=== PATIENT | female | born 1965 | race African-American/Black ===

== ENCOUNTER 2017-07-23 21:13 | Inpatient (IN) | payer MEDICARE, MEDICAID ==
[~2017-07-23] VITALS: Ht 162.6 cm; Wt 60.0 kg
[2017-07-23 21:20] VITALS: Ht 162.6 cm; Wt 60.0 kg
[2017-07-23 21:37] LABS: BASOPHIL # 0.1 10^3/ul (0.0-0.1); BASOPHILS % 0.8 % (0.0-2.0); EOSINOPHILS # 0.4 10^3/ul (0.0-0.5); EOSINOPHILS % 6.9 % (0.0-7.0); HEMATOCRIT 34.1 % (37.0-47.0); LYMPHOCYTES % 47.2 % (15.0-51.0); MEAN CORPUSCULAR HEMOGLOBIN 31.4 pg (29.0-33.0); MEAN CORPUSCULAR HGB CONC 32.3 g/dl (32.0-37.0); MEAN CORPUSCULAR VOLUME 97.4 fl (82.0-101.0); MEAN PLATELET VOLUME 10.4 fl (7.4-10.4); MONOCYTE # 0.5 10^3/ul (0.3-0.9); MONOCYTES % 8.5 % (0.0-11.0); NEUTROPHIL # 2.3 10^3/ul (1.6-7.5); NEUTROPHILS % 36.4 % (39.0-77.0); PLATELET COUNT 331 10^3/UL (140-415); RED CELL DISTRIBUTION WIDTH 13.2 % (11.5-14.5); WHITE BLOOD COUNT 6.3 10^3/ul (4.8-10.8)
--- NOTE | 2017-07-23 21:39 | RADRPT ---
PROCEDURE: XR Chest. CLINICAL INDICATION: Shortness of breath. TECHNIQUE: Single frontal view. COMPARISON: None. FINDINGS: The right hand overlies the right side of the chest as the patient was unable to cooperate. The lung s are clear. The heart size is normal. There is calcification in the aorta consistent with atherosclerosis. There is no pleural effusion. There is no pneumothorax. IMPRESSION: 1. Atherosclerosis. 2. Clear lungs. RPTAT: QQ .Lasha Arriaza MD, MD Date Time Electronically viewed and signed by .Lasha Arriaza MD, MD on 07/23/2017 21:38 .R/
--- NOTE | 2017-07-23 21:49 | RADRPT ---
PROCEDURE: CT Brain without contrast. CLINICAL INDICATION: Code stroke TECHNIQUE: A CT of the brain was performed utilizing axial imaging from the skull base through the vertex without intravenous contrast. Multiplanar reformatted images were made.The CTDIvol is 43.13 mGy and the DLP is 824.04 mGycm. One or more the following dose reduction techniques were utilized: Automated exposure control, adjus tment of the mA and / or kV according to patient's size, or use of iterative reconstruction techniqu e. COMPARISON: None. FINDINGS: There is no intracranial hemorrhage, mass effect, or midline shift. Mild to moderate atrophy is i dentified with compensatory ventricular and sulcal enlargement. Moderate to marked decreased attenu ation is seen in the periventricular and deep white matter, which could be secondary to microvascula r ischemic disease advanced for the patient's age. The bowling white matter differentiation is preserv ed with no acute infarct detected. The osseous structures and visualized paranasal sinuses are unre markable. IMPRESSION: No acute bleed. No acute major tear territory infarct seen. Critical result discussed with Dr. Saad montano at 09:48 p.m. on 07/23/2017. RPTAT: HJES .Ismael Bergeron MD, MD Date Time Electronically viewed and signed by .Ismael Bergeron MD, on 07/23/2017 21:48 .S/
[2017-07-23 21:55] LABS: INR 1.03; PROTIME 13.5 Sec (12.2-14.2); PT RATIO 1.1
[2017-07-23] MEDS ORDERED: ASPIRIN 300 MG SUPP PR ONE (22:00)
[2017-07-23 22:12] LABS: ANION GAP 10 (8-16); BLOOD UREA NITROGEN 12 mg/dl (7-20); CALCIUM 8.7 mg/dl (8.4-10.2); CARBON DIOXIDE 30 mmol/L (21-31); CHLORIDE 103 mmol/L (97-110); CREATININE 0.82 mg/dl (0.44-1.00); GLUCOSE 88 mg/dl (70-220); POTASSIUM 4.2 mmol/L (3.5-5.1); SODIUM 139 mmol/L (135-144)
[2017-07-23 22:18] LABS: TROPONIN-I < 0.012 ng/ml (0.00-0.12)
[2017-07-23 22:23] LABS: ADD UMIC YES; UR ASCORBIC ACID NEGATIVE (NEGATIVE); UR BACTERIA FEW /HPF (NONE SEEN); UR BILIRUBIN (Dip) NEGATIVE (NEGATIVE); UR BLOOD (Dip) NEGATIVE (NEGATIVE); UR BUDDING YEAST FEW /HPF (NONE SEEN); UR CLARITY SLIGHTLY CLOUDY (CLEAR); UR COLOR YELLOW (YELLOW); UR GLUCOSE (Dip) NEGATIVE (NEGATIVE); UR KETONES (Dip) NEGATIVE (NEGATIVE); UR LEUKOCYTE ESTERASE (Dip) 2+ Leu/ul (NEGATIVE); UR NITRITE (Dip) NEGATIVE (NEGATIVE); UR RBC 5 /HPF (0-5); UR SPECIFIC GRAVITY (Dip) 1.015 (1.003-1.030); UR TOTAL PROTEIN (Dip) NEGATIVE (NEGATIVE); UR UROBILINOGEN (Dip) NEGATIVE (NEGATIVE)
[2017-07-23 22:37] LABS: OPIATES Negative (NEGATIVE)
[2017-07-23 22:38] LABS: BARBITURATES Negative (NEGATIVE); CANNABINOIDS Negative (NEGATIVE); COCAINE Negative (NEGATIVE)
[2017-07-23] MEDS ORDERED: CEFTRIAXONE 1 GM/50 ML (PMX) 50 ML IVPB ONE (23:00)
[2017-07-23 23:11] LABS: BENZODIAZEPINES Negative (NEGATIVE)
--- NOTE | 2017-07-23 23:25 | ERA ---
ER Documentation Chief Complaint Date/Time DATE: 07/23/17 TIME: 23:21 Chief Complaint more altered than normal x few hours, EMS EKG shows STEMI; not in ER HPI Patient is a male with dementia and multiple sclerosis as well as hypertension who presents altered. Please note the history and physical exam is limited secondary to the patient's altered mental status. The patient came in as a possible STEMI from the field. She arrived at 2111. She has altered mental status. She is usually verbal but 1 hour ago became nonverbal supposedly. Her primary doctor is Dr. Rodriguez. ROS All systems reviewed and are negative except as per history of present illness. Allergies Allergies: Coded Allergies: Sulfa (Sulfonamide Antibiotics) (Verified Allergy, Unknown, 07/23/17) PMhx/Soc History of Surgery: Yes (RIGHT AKA) Hx Alcohol Use: No Hx Substance Use: No Hx Tobacco Use: No Smoking Status: Unknown if ever smoked FmHx Unable to obtain Physical Exam Vitals Vital Signs Date Time Temp Pulse Resp B/P Pulse Ox O2 Delivery O2 Flow Rate FiO2 07/23/17 22:15 99 2.0 28 07/23/17 21:45 57 15 93/63 100 Room Air 07/23/17 21:33 Nasal Cannula 2 07/23/17 21:20 98.2 66 18 106/66 100 Physical Exam Const: [] Head: Atraumatic Eyes: Normal Conjunctiva ENT: Normal External Ears, Nose and Mouth. Neck: Full range of motion..~ No meningismus. Resp: Clear to auscultation bilaterally Cardio: Regular rate and rhythm, no murmurs Abd: Soft, non tender, non distended. Normal bowel sounds Skin: No petechiae or rashes Back: No midline or flank tenderness Ext: No cyanosis, or edema Neur: Awake and alert Psych: Normal Mood and Affect Result Diagram: 07/23/17212307/23/172123 Results 24 hrs Laboratory Tests Test 07/23/17 21:00 07/23/17 21:24 07/23/17 22:00 Hemoglobin A1c 4.8% White Blood Count 6.310^3/ul Red Blood Count 3.5010^6/ul Hemoglobin 11.0g/dl Hematocrit 34.1% Mean Corpuscular Volume 97.4fl Mean Corpuscular Hemoglobin 31.4pg Mean Corpuscular Hemoglobin Concent 32.3g/dl Red Cell Distribution Width 13.2% Platelet Count 95078^3/UL Mean Platelet Volume 10.4fl Neutrophils % 36.4% Lymphocytes % 47.2% Monocytes % 8.5% Eosinophils % 6.9% Basophils % 0.8% Nucleated Red Blood Cells % 0.0/100WBC Neutrophils # 2.310^3/ul Lymphocytes # 3.010^3/ul Monocytes # 0.510^3/ul Eosinophils # 0.410^3/ul Basophils # 0.110^3/ul Nucleated Red Blood Cells # 0.010^3/ul Prothrombin Time 13.5Sec Prothrombin Time Ratio 1.1 INR International Normalized Ratio 1.03 Activated Partial Thromboplast Time 30.0Sec Sodium Level 139mmol/L Potassium Level 4.2mmol/L Chloride Level 103mmol/L Carbon Dioxide Level 30mmol/L Anion Gap 10 Blood Urea Nitrogen 12mg/dl Creatinine 0.82mg/dl Glucose Level 88mg/dl Calcium Level 8.7mg/dl Troponin I < 0.012ng/ml Urine Color YELLOW Urine Clarity SLIGHTLY CLOUDY Urine pH 7.0 Urine Specific [place] 1.015 Urine Ketones NEGATIVEmg/dL Urine Nitrite NEGATIVEmg/dL Urine Bilirubin NEGATIVEmg/dL Urine Urobilinogen NEGATIVEmg/dL Urine Leukocyte Esterase 2+Silvio/ul Urine Microscopic RBC 5/HPF Urine Microscopic WBC 36/HPF Urine Bacteria FEW/HPF Urine Yeast (Budding) FEW/HPF Urine Hemoglobin NEGATIVEmg/dL Urine Glucose NEGATIVEmg/dL Urine Total Protein NEGATIVEmg/dl Urine Opiates Screen Negative Urine Barbiturates Negative Urine Amphetamines Screen Negative Urine Benzodiazepines Screen Negative Urine Cocaine Screen Negative Urine Cannabinoids Negative Current Medications Medications (Trade) Dose Ordered Sig/Dashawn Route PRN Reason Start Time Stop Time Status Last Admin Dose Admin Aspirin 300 mg 300 mg ONCE ONCE RI 07/23/17 22:00 07/23/17 22:01 DC 07/23/17 22:12 Ceftriaxone Sodium (Rocephin) 50 ml @ 100 mls/hr ONCE ONCE IVPB 07/23/17 23:00 07/23/17 23:29 Procedures/MDM EKG #1 read by me: Rate/Rhythm: Regular rate and rhythm at a normal rate Intervals: Normal Impression: No evidence of ischemia or arrhythmia EKG #2 read by me: Rate/Rhythm: Regular rate and rhythm at a normal rate Intervals: Normal Impression: No evidence of ischemia or arrhythmia CT brain shows no intracranial hemorrhage or mass per radiology. Chest x-ray shows no pneumonia per radiology. Patient is a 51-year-old female with dementia and hypertension who presents altered. She was found to have acute cystitis which may be the cause of her altered mental status. The patient had a CT scan of the brain which did not show any obvious intrarenal hemorrhage or mass. The patient also had a chest x- ray which shows no obvious pneumonia. At this point I doubt STEMI as the 2 EKGs did not show STEMI. The patient will be admitted to the panel team to a telemetry bed. The patient was given aspirin for potential stroke although I believe the most likely cause of the altered mental status is related to the acute cystitis. The patient has chronic illness. At this point I doubt sepsis as there is not 2 SIRS criteria. Departure Diagnosis: Primary Impression: Altered level of consciousness Additional Impressions: Anemia Qualified Code: D64.9 - Anemia, unspecified type Cystitis Condition: HARSHA Mckeon MD Jul 23, 2017 23:25
[2017-07-23] MEDS ORDERED: SODIUM CHLORIDE 0.9% 1L BAG IV* STA (23:29)
[2017-07-23] MEDS ORDERED: ONDANSETRON 4 MG INJ IV PRN (23:30)
[2017-07-23] MEDS ORDERED: ACETAMINOPHEN 325 MG TAB PO PRN (23:30)
[2017-07-24] MEDS ORDERED: ACET325T45 PO (02:56)
[2017-07-24] MEDS ORDERED: ERGO500037 PO (02:56)
[2017-07-24] MEDS ORDERED: HYDR4TAB PO (02:56)
[2017-07-24] MEDS ORDERED: CRAN450C PO (02:56)
[2017-07-24] MEDS ORDERED: DOCU-159 PO (02:56)
[2017-07-24] MEDS ORDERED: AMLO-147 PO (02:56)
[2017-07-24] MEDS ORDERED: M-171CAP PO (02:56)
[2017-07-24] MEDS ORDERED: VENL75TA2 PO (02:56)
[2017-07-24] MEDS ORDERED: PANT40TA4 PO (02:56)
[2017-07-24] MEDS ORDERED: BISA10SU55 RC (02:56)
[2017-07-24] MEDS ORDERED: METO25TA4 PO (02:56)
[2017-07-24] MEDS ORDERED: SLOMAG PO (02:56)
[2017-07-24] MEDS ORDERED: LEVE500S8 PO (02:56)
[2017-07-24] MEDS ORDERED: GABA100C14 PO (02:56)
[2017-07-24] MEDS ORDERED: DONE10TA7 PO (02:56)
[2017-07-24] MEDS ORDERED: MEMA5TAB PO (02:56)
[2017-07-24] MEDS ORDERED: MELA3TAB29 PO (02:56)
[2017-07-24] MEDS ORDERED: CLON-379 PO (02:56)
[2017-07-24] MEDS ORDERED: BACL20TA PO (02:56)
[2017-07-24] MEDS ORDERED: OXCA150T43 PO (02:59)
[2017-07-24] MEDS ORDERED: DEXTROSE 5%-0.45% NACL 1,000 ML IV SCH (04:27)
[2017-07-24] MEDS ORDERED: ALBUTEROL/IPRATROPIUM (NEB) 3 ML AMP HHN PRN (04:30)
[2017-07-24] MEDS ORDERED: ACETAMINOPHEN 325 MG TAB PO PRN ×2 (04:30)
[2017-07-24] MEDS ORDERED: NACL 0.9% 3 ML SYG IV SCH (04:30)
[2017-07-24] MEDS ORDERED: morphine 2 MG INJ IV PRN (04:30)
[2017-07-24] MEDS ORDERED: ONDANSETRON 4 MG INJ IV PRN (04:30)
[2017-07-24 05:55] LABS: BASOPHILS % 0.5 % (0.0-2.0); EOSINOPHILS # 0.5 10^3/ul (0.0-0.5); EOSINOPHILS % 8.2 % (0.0-7.0); HEMATOCRIT 38.3 % (37.0-47.0); HEMOGLOBIN 11.8 g/dl (12.0-16.0); LYMPHOCYTES # 2.6 10^3/ul (0.8-2.9); LYMPHOCYTES % 47.4 % (15.0-51.0); MEAN CORPUSCULAR HEMOGLOBIN 30.3 pg (29.0-33.0); MEAN CORPUSCULAR HGB CONC 30.8 g/dl (32.0-37.0); MEAN CORPUSCULAR VOLUME 98.2 fl (82.0-101.0); MEAN PLATELET VOLUME 10.5 fl (7.4-10.4); MONOCYTE # 0.5 10^3/ul (0.3-0.9); MONOCYTES % 9.5 % (0.0-11.0); NEUTROPHIL # 1.9 10^3/ul (1.6-7.5); NEUTROPHILS % 34.2 % (39.0-77.0); PLATELET COUNT 268 10^3/UL (140-415); RED CELL DISTRIBUTION WIDTH 13.2 % (11.5-14.5); WHITE BLOOD COUNT 5.5 10^3/ul (4.8-10.8)
--- NOTE | 2017-07-24 06:15 | HP ---
Date/Time of Note Date/Time of Note DATE: 07/24/17 TIME: 06:03 Assessment/Plan VTE Prophylaxis VTE Prophylaxis Intervention: heparin Assessment/Plan Assessment/Plan 51-year-old female with history of hypertension, MS, seizure, probable dementia and depression with acute encephalopathy. -Unknown etiology but this could be secondary to MS flare vs seizure vs infectious etiology from UTI vs CVA -Will admit to telemetry unit -Obtain MRI of the brain -Treat UTI -Neurology consult. Will order EEG -Check folate, B12 and TSH -Speech/swallow as well as PT evaluation HPI/ROS Admit Date/Time Admit Date/Time Hx of Present Illness This is a 55-year-old female with a history of hypertension, seizure, multiple sclerosis, probable dementia and depression who was sent from SNF for altered mentation. Field EKG actually showed STEMI and she was brought to the ER as code STEMI. 2 EKGs done in the ER however showed no ST-T wave abnormalities and as such STEMI was cancelled. Patient is currently confused and as such information is obtained from chart review and from the ER physician. Reportedly patient is usually verbal but about an hour prior to presenting to the ER she was noted to be altered and nonverbal. When she presented to the ER, initial vitals were stable but after couple of hours blood pressure was noted to be as low as 70/44. Labs shows a hemoglobin of 11 otherwise CBC and CMP within acceptable range. Urinalysis consistent with UTI. Brain CT was negative for acute findings. PMH/Family/Social Past Medical History Medical History: hypertension, other (Multiple sclerosis, seizure) Social History Alcohol Use: other (Unknown) Smoking Status: Unknown if ever smoked Drug Use: other (Unknown) Exam/Review of Systems Vital Signs Vitals Vital Signs Date Time Temp Pulse Resp B/P Pulse Ox O2 Delivery O2 Flow Rate FiO2 07/24/17 05:58 56 16 118/77 100 Nasal Cannula 2.0 07/23/17 22:15 28 07/23/17 21:20 98.2 Exam Constitutional: other (Sleepy but arousable. Confused) Psych: confusion Eyes: PERRL Respiratory: clear to auscultation Cardiovascular: nl pulses, regular rate and rhythm Gastrointestinal: soft Extremities: normal pulses Neurological: confused Labs Result Diagram: 07/24/17 0547 07/23/17 9194 Medications Medications Current Medications Dextrose/Sodium Chloride (D5-1/2ns) 1,000 ml @ 75 mls/hr [id number] IV ; Start at 04:27 Ondansetron HCl (Zofran Inj) 4 mg Q6H PRN IV NAUSEA AND/OR VOMITING; Start at 04:30 Aspirin (Aspirin) 81 mg DAILY PO ; Start 07/24/17 at 09:00 Acetaminophen (Tylenol Tab) 650 mg Q6H PRN PO PAIN LEVEL 1-3 OR FEVER; Start at 04:30 Morphine Sulfate (morphine) 2 mg Q4H PRN IV PAIN LEVEL 7-10; Start 07/24/17 at 04:30 Heparin Sodium (Porcine) (Heparin (5000 Units/0.5 ml)) 5,000 unit Q12 SC ; Start 07/24/17 at 09:00 Acetaminophen (Tylenol Tab) 325 mg Q4H PRN PO PAIN AND OR ELEVATED TEMP; Start 07/24/17 at 04:30 Baclofen (Lioresal) 20 mg QID PO ; Start 07/24/17 at 09:00; Status UNV Docusate Sodium (Colace) 100 mg BID PO ; Start 07/24/17 at 09:00; Status UNV Donepezil HCl (Aricept) 10 mg DAILY PO ; Start 07/24/17 at 09:00; Status UNV Gabapentin (Neurontin) 100 mg TID PO ; Start 07/24/17 at 09:00; Status UNV Hydromorphone HCl (Dilaudid) 4 mg Q6 PRN PO PAIN; Start 07/24/17 at 04:30; Status UNV Levetiracetam (Keppra Liquid) 500 mg BID PO ; Start 07/24/17 at 09:00; Status UNV Magnesium Chloride (Mag 64) 64 mg BID PO ; Start 07/24/17 at 09:00; Status UNV Memantine (Namenda) 5 mg BID PO ; Start 07/24/17 at 09:00; Status UNV Oxcarbazepine (Trileptal) 150 mg BID PO ; Start 07/24/17 at 09:00; Status UNV Venlafaxine HCl (Effexor Xr) 75 mg DAILY PO ; Start 07/24/17 at 09:00; Status UNV MAIKEL HOBBS MD Jul 24, 2017 06:13
[2017-07-24 06:20] LABS: ALBUMIN 3.3 g/dl (3.3-4.9); CALCIUM 8.9 mg/dl (8.4-10.2); CHOL/HDL RATIO 3.5 RATIO; CREATININE 0.69 mg/dl (0.44-1.00); MAGNESIUM 1.8 mg/dl (1.7-2.5); POTASSIUM 4.5 mmol/L (3.5-5.1); TOTAL PROTEIN 6.6 g/dl (6.1-8.1)
[2017-07-24 06:50] LABS: THYROID STIMULATING HORMONE 0.682 MIU/L (0.465-4.680)
[2017-07-24] MEDS: PANTOPRAZOLE (EC) 40 MG TAB PO SCH (07:52)
[2017-07-24 08:40] LABS: FOLATE 11.2 ng/ml (2.8-20.0)
[2017-07-24] MEDS ORDERED: GABAPENTIN 100 MG CAP PO SCH (09:00)
[2017-07-24] MEDS ORDERED: BACLOFEN 10 MG TAB PO SCH (09:00)
[2017-07-24] MEDS ORDERED: HYDROmorphONE 2 MG TAB PO PRN (09:30)
[2017-07-24] MEDS: MAGNESIUM CHLORIDE (SR) 64 MG TAB PO SCH ×2 (09:54→23:16)
[2017-07-24] MEDS: ASPIRIN 81 MG TAB PO SCH (09:54)
[2017-07-24] MEDS: MEMANTINE 5 MG TAB PO SCH ×2 (09:54→21:21)
[2017-07-24] MEDS: OXCARBAZEPINE 150 MG TAB PO SCH ×2 (09:55→23:16)
[2017-07-24] MEDS: LEVETIRACETAM (100 MG/ML) 5ML CUP PO SCH ×2 (09:55→21:21)
[2017-07-24] MEDS: VENLAFAXINE (XR) 75 MG CAP PO SCH (09:55)
[2017-07-24] MEDS: DOCUSATE SODIUM 100 MG CAP PO SCH ×2 (09:56→21:21)
[2017-07-24] MEDS: DONEPEZIL 10 MG TAB PO SCH (09:56)
[2017-07-24] MEDS: HEPARIN 5,000 UNIT/0.5 ML VIAL SC SCH ×2 (09:59→21:22)
--- NOTE | 2017-07-24 14:49 | RADRPT ---
PROCEDURE: MR Brain without contrast. CLINICAL INDICATION: Neurologic deficit TECHNIQUE: An MRI of the brain was performed on a high-resolution MR scanner utilizing the followi ng sequences: Sagittal and axial T1 weighted, axial T2 weighted, axial FLAIR, coronal GRE, and axial diffusion weighted with ADC mapping. Images were reviewed high-resolution PACS workstation. No con trast was administered. COMPARISON: Head CT earlier today FINDINGS: No acute parenchymal hemorrhage, mass effect, or midline shift. No evidence of recent infarct. Confl uent signal changes in the cerebral white matter with involvement of bilateral anterior temporal zhane es. Chronic right chavez radiata lacunar infarcts. Moderate to advanced cerebral and cerebellar volu me loss, greater than expected for age No suspicious parenchymal hypointense signal abnormalities are seen on the GRE images to suggest the presence of blood degradation products. The ventricles are stable size. Inferior falx calcification projecting to the left. Normal flow voids are visible in the proximal intracranial arteries suggesting their patency. No significant opacification of the paranasal sinuses or mastoids. IMPRESSION: No evidence of recent infarct. Confluent cerebral white matter signal changes with involvement of the bilateral anterior temporal p oles. This may be due to chronic microvascular disease. Alternative considerations include CADASIL ( Cerebral autosomal dominant arteriopathy with subcortical infarcts and leukoencephalopathy) or an in flammatory process such as advanced multiple sclerosis. Correlation with patient history would be he lpful. Moderate to advanced cerebral and cerebellar volume loss is greater than expected for age. RPTAT: AA .Jasper Edmond MD, MD Date Time Electronically viewed and signed by .Jasper Edmond MD, MD on 07/24/2017 14:49 .T/
--- NOTE | 2017-07-24 17:36 | PN ---
Date/Time of Note Date/Time of Note DATE: 07/24/17 TIME: 17:35 Assessment/Plan VTE Prophylaxis VTE Prophylaxis Intervention: LMWH Lines/Catheters IV [facility] Saline Lock Assessment/Plan Chief Complaint/Hosp Course 51 yo female with MS who was apparently sent to ED for acute episode of encephelopathy Imaging shows: "Confluent cerebral white matter signal changes with involvement of the bilateral anterior temporal poles. This may be due to chronic microvascular disease. Alternative considerations include CADASIL (Cerebral autosomal dominant arteriopathy with subcortical infarcts and leukoencephalopathy) or an inflammatory process such as advanced multiple sclerosis. Correlation with patient history would be helpful. Moderate to advanced cerebral and cerebellar volume loss is greater than expected for age." Will need to obtain collateral from family but I suspect the patient is back to her baseline Problems: Subjective 24 Hr Interval Summary Free Text/Dictation Seen this afternoon patient appears back to normal mentation Says she lives with her in [place] Denies any phsyical complaints Can't state reasons for her coming to the ED Exam/Review of Systems Vital Signs Vitals Vital Signs Date Time Temp Pulse Resp B/P Pulse Ox O2 Delivery O2 Flow Rate FiO2 07/24/17 10:17 64 24 117/75 100 Room Air 07/24/17 05:58 2.0 07/23/17 22:15 28 07/23/17 21:20 98.2 Results Result Diagram: 07/24/17 0547 07/24/17 0547 Results 24 hrs Laboratory Tests Test 07/23/17 21:00 07/23/17 21:24 07/23/17 22:00 07/24/17 05:47 Hemoglobin A1c 4.8 4.9 White Blood Count 6.3 5.5 Red Blood Count 3.50 L 3.90 L Hemoglobin 11.0 L 11.8 L Hematocrit 34.1 L 38.3 Mean Corpuscular Volume 97.4 98.2 Mean Corpuscular Hemoglobin 31.4 30.3 Mean Corpuscular Hemoglobin Concent 32.3 30.8 L Red Cell Distribution Width 13.2 13.2 Platelet Count 331 268 Mean Platelet Volume 10.4 10.5 H Neutrophils % 36.4 L 34.2 L Lymphocytes % 47.2 47.4 Monocytes % 8.5 9.5 Eosinophils % 6.9 8.2 H Basophils % 0.8 0.5 Nucleated Red Blood Cells % 0.0 0.0 Neutrophils # 2.3 1.9 Lymphocytes # 3.0 H 2.6 Monocytes # 0.5 0.5 Eosinophils # 0.4 0.5 Basophils # 0.1 0.0 Nucleated Red Blood Cells # 0.0 0.0 Prothrombin Time 13.5 Prothrombin Time Ratio 1.1 INR International Normalized Ratio 1.03 Activated Partial Thromboplast Time 30.0 Sodium Level 139 141 Potassium Level 4.2 4.5 Chloride Level 103 110 Carbon Dioxide Level 30 27 Anion Gap 10 9 Blood Urea Nitrogen 12 11 Creatinine 0.82 0.69 Glucose Level 88 76 Calcium Level 8.7 8.9 Troponin I < 0.012 Urine Color YELLOW Urine Clarity SLIGHTLY CLOUDY A Urine pH 7.0 Urine Specific [place] 1.015 Urine Ketones NEGATIVE Urine Nitrite NEGATIVE Urine Bilirubin NEGATIVE Urine Urobilinogen NEGATIVE Urine Leukocyte Esterase 2+ H Urine Microscopic RBC 5 Urine Microscopic WBC 36 H Urine Bacteria FEW A Urine Yeast (Budding) FEW A Urine Hemoglobin NEGATIVE Urine Glucose NEGATIVE Urine Total Protein NEGATIVE Urine Opiates Screen Negative Urine Barbiturates Negative Urine Amphetamines Screen Negative Urine Benzodiazepines Screen Negative Urine Cocaine Screen Negative Urine Cannabinoids Negative Magnesium Level 1.8 Total Bilirubin 0.0 L Direct Bilirubin 0.00 Indirect Bilirubin 0.0 Aspartate Amino Transf (AST/SGOT) 14 L Alanine Aminotransferase (ALT/SGPT) 18 Alkaline Phosphatase 107 Total Protein 6.6 Albumin 3.3 Globulin 3.30 H Albumin/Globulin Ratio 1.00 Triglycerides Level 136 Cholesterol Level 182 LDL Cholesterol, Calculated 104 HDL Cholesterol 51 Cholesterol/HDL Ratio 3.5 Vitamin B12 Level 477 Folate 11.2 Thyroid Stimulating Hormone (TSH) 0.682 Medications Medications Current Medications Ondansetron HCl (Zofran Inj) 4 mg Q6H PRN IV NAUSEA AND/OR VOMITING; Start at 04:30 Aspirin (Aspirin) 81 mg DAILY PO Last administered on 07/24/17t 09:54; Admin Dose 81 MG; Start 07/24/17 at 09:00 Acetaminophen (Tylenol Tab) 650 mg Q6H PRN PO PAIN LEVEL 1-3 OR FEVER; Start at 04:30 Morphine Sulfate (morphine) 2 mg Q4H PRN IV PAIN LEVEL 7-10; Start 07/24/17 at 04:30 Heparin Sodium (Porcine) (Heparin (5000 Units/0.5 ml)) 5,000 unit Q12 SC Last administered on 07/24/17 09:59; Admin Dose 5,000 UNIT; Start 07/24/17 at 09:00 Acetaminophen (Tylenol Tab) 325 mg Q4H PRN PO PAIN AND OR ELEVATED TEMP; Start 07/24/17 at 04:30 Docusate Sodium (Colace) 100 mg BID PO Last administered on 07/24/17 09:56; Admin Dose 100 MG; Start 07/24/17 at 09:00 Donepezil HCl (Aricept) 10 mg DAILY PO Last administered on 07/24/17 09:56; Admin Dose 10 MG; Start 07/24/17 at 09:00 Hydromorphone HCl (Dilaudid) 4 mg Q6H PRN PO PAIN; Start 07/24/17 at 09:30 Levetiracetam (Keppra Liquid) 500 mg BID PO Last administered on 07/24/17 09: 55; Admin Dose 500 MG; Start 07/24/17 at 09:00 Magnesium Chloride (Mag 64) 64 mg BID PO Last administered on 07/24/17 09:54; Admin Dose 64 MG; Start 07/24/17 at 09:00 Memantine (Namenda) 5 mg BID PO Last administered on 07/24/17 09:54; Admin Dose 5 MG; Start 07/24/17 at 09:00 Oxcarbazepine (Trileptal) 150 mg BID PO Last administered on 07/24/17 09:55; Admin Dose 150 MG; Start 07/24/17 at 09:00 Venlafaxine HCl 75 mg 75 mg DAILY PO Last administered on 07/24/17 09:55; Admin Dose 75 MG; Start 07/24/17 at 09:00 Ceftriaxone Sodium (Rocephin) 50 ml @ 100 mls/hr Q24H IVPB ; Start 07/24/17 at 23:00 Lorazepam (Ativan) 2 mg Q1H PRN IV seizure; Start 07/24/17 at 06:30 CRISTINE PETERSEN MD Jul 24, 2017 17:36
[2017-07-24 19:36] VITALS: BP 134/79; RESP 16
[2017-07-24 22:07] VITALS: PULSE 67
[2017-07-24 23:17] VITALS: BP 118/76; RESP 19
[2017-07-24] MEDS: CEFTRIAXONE 1 GM/50 ML (PMX) 50 ML IVPB SCH (23:20)
[2017-07-25] VITALS (9 sets, daily range): BP systolic 129–147; BP diastolic 72–82; PULSE 72–95; RESP 18–20
--- NOTE | 2017-07-25 06:28 | CONS ---
DATE OF ADMISSION: 07/23/2017 DATE OF CONSULTATION: 07/25/2017 HISTORY OF PRESENT ILLNESS: The patient is 51 years old with a past medical history of hypertension, seizure, dementia, possible multiple sclerosis, acute encephalopathy. The patient came from alf facility with decreased mini-mental status. The patient can follow some questions appropriately, some she does not. She looks in and out. MEDICATION: The patient's current medications include: 1. Aspirin 81 mg once a day. 2. Aricept 10 mg once a day. 3. Keppra 500 mg twice a day. 4. Namenda 5 mg twice a day. 5. Effexor 75 mg once a day. 6. Protonix 40 mg once a day. PAST MEDICAL HISTORY: As above, includes hypertension, seizure disorder, dementia, possible MS. SOCIAL HISTORY: The patient is a alf facility resident. Currently does not smoke, does not drink, does not use any street drugs. PHYSICAL EXAMINATION: NEUROLOGIC: The patient looks confused. Can follow simple commands. She does not remember any time she had a seizure. Cranial nerves: II: Pupils equal on both sides, reactive to light. III, IV, : Extraocular muscles intact. V: Equal sensation to face. VII: Symmetric face. VIII: Equal hearing bilaterally. IX, X: Elevated palate. XI: Elevates shoulders 5/5. XII: With straight tongue. Motor exam: The patient with right above-knee amputation. Moving right upper extremity with upper extremity weakness. HEART: Regular rate and rhythm. LUNGS: Equal breath sounds. ABDOMEN: Soft. Nondistended. No tenderness. ASSESSMENT AND PLAN: 1. The patient is 51 years old with multiple medical problems, with decreased mini-mental status, with possibility of underlying seizure activity. Her EEG looks okay today. However, I might adjust her dose for the seizures. She used to take Keppra 500 mg twice a day. I am going to increase to 750 mg twice a day. 2. Underlying dementia of Alzheimer's/ CADSIL . The patient will be given Namenda 5 mg twice a day, Aricept 5 mg twice a day. Follow up the patient with mini-mental status. 3. History of possibility of underlying encephalopathy with urinary tract infection. We have the patient on antibiotic for that. Follow up the patient after clearing of her infection, which could be the worsening of her mini-mental status because of the infection. 4. The patient is admitted with the possibility of coronary artery disease. It might be better for her to be on telemetry from now. Continuation for her treatment. 5. Underlying depression for which the patient is taking Effexor XR 75 mg once a day. 6. TIA /CADSIL contenue ASA 81 mg once a day Again, thank you. Dictated By: Grover Giles MD /nidhi/damion /Document#: [id number] SCOTTIE
--- NOTE | 2017-07-25 06:46 | NEURPT ---
DATE: 07/23/2017 EEG HISTORY: A 51-year-old lady with a past medical history of seizure disorder, memory disorder, depression, acute urinary tract infection. FINDINGS: EEG done using the International 10-20 electrode system with photic stimulation. Bilateral occipital hemisphere shows delta and theta waves, medium size and acute, 7 hertz. Some atrial background artifacts recorded. No epileptiform discharge or seizure activity recorded. IMPRESSION: This is normal electroencephalogram. Normal electroencephalogram does not exclude the presence of history of seizure. Clinical correlation should be advised. Dictated By: Grover Giles MD /nidhi/keerthi /Document#: [id number]
[2017-07-25] MEDS: ASPIRIN 81 MG TAB PO SCH (08:53)
[2017-07-25] MEDS: MAGNESIUM CHLORIDE (SR) 64 MG TAB PO SCH ×2 (08:53→21:57)
[2017-07-25] MEDS: DOCUSATE SODIUM 100 MG CAP PO SCH ×2 (08:53→21:57)
[2017-07-25] MEDS: PANTOPRAZOLE (EC) 40 MG TAB PO SCH (08:53)
[2017-07-25] MEDS: MEMANTINE 5 MG TAB PO SCH (08:53)
[2017-07-25] MEDS: OXCARBAZEPINE 150 MG TAB PO SCH ×2 (08:53→21:57)
[2017-07-25] MEDS: DONEPEZIL 10 MG TAB PO SCH (08:53)
[2017-07-25] MEDS: VENLAFAXINE (XR) 75 MG CAP PO SCH (08:53)
[2017-07-25] MEDS: LEVETIRACETAM (100 MG/ML) 5ML CUP PO SCH ×2 (08:54→21:57)
[2017-07-25] MEDS ORDERED: LEVETIRACETAM 250 MG TAB PO SCH (09:00)
[2017-07-25] MEDS: HEPARIN 5,000 UNIT/0.5 ML VIAL SC SCH ×2 (09:03→21:58)
[2017-07-25 09:05] LABS: CALCIUM 9.8 mg/dl (8.4-10.2); CREATININE 0.47 mg/dl (0.44-1.00); MAGNESIUM 1.7 mg/dl (1.7-2.5); PHOSPHORUS 3.2 mg/dl (2.5-4.9)
[2017-07-25 09:26] LABS: BASOPHILS % 0.9 % (0.0-2.0); EOSINOPHILS # 0.3 10^3/ul (0.0-0.5); EOSINOPHILS % 7.3 % (0.0-7.0); HEMATOCRIT 38.5 % (37.0-47.0); HEMOGLOBIN 12.7 g/dl (12.0-16.0); LYMPHOCYTES # 1.5 10^3/ul (0.8-2.9); LYMPHOCYTES % 35.1 % (15.0-51.0); MEAN CORPUSCULAR HEMOGLOBIN 31.3 pg (29.0-33.0); MEAN CORPUSCULAR VOLUME 94.8 fl (82.0-101.0); MEAN PLATELET VOLUME 11.8 fl (7.4-10.4); MONOCYTE # 0.4 10^3/ul (0.3-0.9); MONOCYTES % 8.5 % (0.0-11.0); NEUTROPHIL # 2.1 10^3/ul (1.6-7.5); RED BLOOD COUNT 4.06 10^6/ul (4.20-5.40); RED CELL DISTRIBUTION WIDTH 12.6 % (11.5-14.5); WHITE BLOOD COUNT 4.4 10^3/ul (4.8-10.8)
[2017-07-25 09:43] LABS: POSITIVE DIFF @See below
[2017-07-25 10:38] LABS: PLATELET COUNT 125 10^3/UL (140-415)
[2017-07-25] MEDS: HYDROmorphONE 4 MG TAB PO PRN (14:38)
--- NOTE | 2017-07-25 15:37 | PN ---
Date/Time of Note Date/Time of Note DATE: 07/25/17 TIME: 15:33 Assessment/Plan VTE Prophylaxis VTE Prophylaxis Intervention: LMWH Lines/Catheters IV Catheter Type (from Nrs): Saline Lock Urinary Cath still in place: No Assessment/Plan Chief Complaint/Hosp Course 51 yo female with MS, s/p AKA for osteomyelitis 2/2 pressure ulcer, bed bound who was apparently sent to ED for acute seizure Seizure: - Management per neurology - Keppra 750 BID Depression: - Continue venlafaxine MS: - Continue home meds h/o CAD: - Continue aspirin UTI: - Complete 3 days of ceftriaxone Patient stable for discharge Will consult case management about discharge options Problems: Subjective 24 Hr Interval Summary Free Text/Dictation EEG normal, rai MRI with chronic changes per Dr Case Patients cognition today is much improved, discussed at length her MS history. Very sad to have this disease as it has destroyed her life Interested in placement at a facility rather than returning home Exam/Review of Systems Vital Signs Vitals Vital Signs Date Time Temp Pulse Resp B/P Pulse Ox O2 Delivery O2 Flow Rate FiO2 07/25/17 12:03 98.9 98 18 147/79 100 07/24/17 20:00 Nasal Cannula 07/24/17 13:00 2.0 07/23/17 22:15 28 Intake and Output 07/24/17 07/24/17 07/25/17 15:00 23:00 07:00 Intake Total 730 ml 110 ml Balance 730 ml 110 ml Exam AOx3, sad affect, pleasant, apporrpioate RRR, no m/r/g RUE spastic/contracted LUE normal s/p R AKA LLE normal Breathing comfortably No distress Results Result Diagram: 07/25/1781107/25/17811 Results 24 hrs Laboratory Tests Test 07/25/17 08:12 White Blood Count 4.4 L Red Blood Count 4.06 L Hemoglobin 12.7 Hematocrit 38.5 Mean Corpuscular Volume 94.8 Mean Corpuscular Hemoglobin 31.3 Mean Corpuscular Hemoglobin Concent 33.0 Red Cell Distribution Width 12.6 Platelet Count 125 #L Mean Platelet Volume 11.8 H Neutrophils % 48.0 Lymphocytes % 35.1 Monocytes % 8.5 Eosinophils % 7.3 H Basophils % 0.9 Nucleated Red Blood Cells % 0.0 Neutrophils # 2.1 Lymphocytes # 1.5 Monocytes # 0.4 Eosinophils # 0.3 Basophils # 0.0 Nucleated Red Blood Cells # 0.0 Sodium Level 138 Potassium Level 4.0 Chloride Level 106 Carbon Dioxide Level 28 Anion Gap 8 Blood Urea Nitrogen 7 Creatinine 0.47 Glucose Level 80 Calcium Level 9.8 Phosphorus Level 3.2 Magnesium Level 1.7 Medications Medications Current Medications Ondansetron HCl (Zofran Inj) 4 mg Q6H PRN IV NAUSEA AND/OR VOMITING; Start at 04:30 Aspirin (Aspirin) 81 mg DAILY PO Last administered on 07/25/17 08:53; Admin Dose 81 MG; Start 07/24/17 at 09:00 Acetaminophen (Tylenol Tab) 650 mg Q6H PRN PO PAIN LEVEL 1-3 OR FEVER; Start at 04:30 Morphine Sulfate (morphine) 2 mg Q4H PRN IV PAIN LEVEL 7-10 Last administered on 07/25/17 11:36; Admin Dose 2 MG; Start 07/24/17 at 04:30 Heparin Sodium (Porcine) (Heparin (5000 Units/0.5 ml)) 5,000 unit Q12 SC Last administered on 07/25/17 09:03; Admin Dose 5,000 UNIT; Start 07/24/17 at 09:00 Acetaminophen (Tylenol Tab) 325 mg Q4H PRN PO PAIN AND OR ELEVATED TEMP; Start 07/24/17 at 04:30 Docusate Sodium (Colace) 100 mg BID PO Last administered on 07/25/17 08:53; Admin Dose 100 MG; Start 07/24/17 at 09:00 Donepezil HCl (Aricept) 10 mg DAILY PO Last administered on 07/25/17 08:53; Admin Dose 10 MG; Start 07/24/17 at 09:00 Magnesium Chloride (Mag 64) 64 mg BID PO Last administered on 07/25/17 08:53; Admin Dose 64 MG; Start 07/24/17 at 09:00 Memantine (Namenda) 5 mg BID PO Last administered on 07/25/17 08:53; Admin Dose 5 MG; Start 07/24/17 at 09:00 Oxcarbazepine (Trileptal) 150 mg BID PO Last administered on 10/1/17at 08:53; Admin Dose 150 MG; Start 07/24/17 at 09:00 Venlafaxine HCl 75 mg 75 mg DAILY PO Last administered on 07/25/17 08:53; Admin Dose 75 MG; Start 07/24/17 at 09:00 Ceftriaxone Sodium (Rocephin) 50 ml @ 100 mls/hr Q24H IVPB Last administered on 07/24/17 23:20; Admin Dose 100 MLS/HR; Start 07/24/17 at 23:00 Lorazepam (Ativan) 2 mg Q1H PRN IV seizure; Start 07/24/17 at 06:30 Levetiracetam (Keppra Liquid) 750 mg BID PO Last administered on 07/25/17 08: 54; Admin Dose 750 MG; Start 07/25/17 at 09:00 Hydromorphone HCl (Dilaudid) 4 mg Q6H PRN PO PAIN Last administered on 14:38; Admin Dose 4 MG; Start 07/25/17 at 14:05 CRISTINE PETERSEN MD Jul 25, 2017 15:37
[2017-07-25] MEDS: LORAZEPAM 2 MG INJ IV PRN (18:07)
[2017-07-25] MEDS: CEFTRIAXONE 1 GM/50 ML (PMX) 50 ML IVPB SCH (22:19)
[2017-07-26] VITALS (10 sets, daily range): BP systolic 130–144; BP diastolic 80–92; PULSE 85–119; RESP 17–20
--- NOTE | 2017-07-26 06:54 | CONS ---
DATE OF SERVICE: 07/25/2017 This is a 51-year-old lady, who was admitted to [facility] with decrease mini-mental status, possibility of underlying seizure activity. 1. EEG was done which was within normal limits; however, normal EEG does not exclude a clinical history of seizure. I increased her Keppra from 500 to 750 twice a day. The patient has a history of possible underlying with abnormal bitemporal area which continues. The patient is on aspirin which is a good prophylaxis for the stroke from now. 2. Underlying dementia. Dementia could be from versus Alzheimer's, for which the patient has had treatment for Alzheimer prior to the admission in the form of Namenda and Aricept. The patient upon admission had lack of communication. She could follow a one-step command, but could not follow second step command. The patient had in and out confusion. We admitted the patient to stay in Telemetry for more evaluation and treatment. MEDICATION: Her current medications include: 1. Aspirin 81 mg once a day. 2. Aricept 10 mg once a day. 3. Keppra 750 mg twice a day. 4. Namenda 5 mg twice a day. 5. Effexor 75 mg once a day. 6. Protonix 14 mg once a day. PHYSICAL EXAMINATION: VITAL SIGNS: On examination today, the patient is alert, awake, can follow simple commands. NEUROLOGIC: Cranial nerves: II: Pupils equal on both sides, reactive to light. III, IV, : Extraocular muscles intact. V: Equal sensation to face. VII: Symmetric face. VIII: Decreased hearing bilaterally. IX, X: Elevated palate. XI: Elevates shoulders 5/5. XII: With straight tongue. Motor: Can move both upper extremities as well as left lower extremity. Right lower extremity with AKA. HEART: Regular rate and rhythm. LUNGS: Equal breath sounds. ABDOMEN: Soft, nontender, nondistended. ASSESSMENT AND PLAN: 1. Patient [id number] with decreased mini-mental status with multifactorial reasons. 2. Underlying possibility of seizure. We increased her Keppra from 500 to 750 mg per day for seizure prophylaxis and we will follow up the patient with an encephalogram in one month as an outpatient for more evaluation and treatment. 3. Underlying memory disorder, probably secondary to Alzheimer's versus on Namenda 5 mg twice a day, as well as Aricept 5 mg. we will follow up the patient as an outpatient for mini-mental status and follow up about her deterioration of her condition. 4. Suspected underlying TIA. Keep the patient on aspirin 81 mg for stroke prophylaxis, which could be part of if the patient has it. 5. History of depression with the patient on Effexor 5 mg once a day. Dictated By: Grover Giles MD /[email or web address]/ /Document#: [id number]
[2017-07-26] MEDS: DOCUSATE SODIUM 100 MG CAP PO SCH (08:54)
[2017-07-26] MEDS: PANTOPRAZOLE (EC) 40 MG TAB PO SCH (08:54)
[2017-07-26] MEDS: LEVETIRACETAM (100 MG/ML) 5ML CUP PO SCH (08:54)
[2017-07-26] MEDS: ASPIRIN 81 MG TAB PO SCH (08:54)
[2017-07-26] MEDS: LORAZEPAM 2 MG INJ IV PRN (08:54)
[2017-07-26] MEDS: MAGNESIUM CHLORIDE (SR) 64 MG TAB PO SCH (08:54)
[2017-07-26] MEDS: VENLAFAXINE (XR) 75 MG CAP PO SCH (08:54)
[2017-07-26] MEDS: OXCARBAZEPINE 150 MG TAB PO SCH (08:54)
[2017-07-26] MEDS: HEPARIN 5,000 UNIT/0.5 ML VIAL SC SCH (08:55)
--- NOTE | 2017-07-26 12:40 | PDOCDIS ---
Discharge Instructions DIAGNOSIS Discharge Diagnosis Multiple sclerosis CONDITION Patient Condition: CRISTINE Menjivar MD Jul 26, 2017 12:40
[2017-07-26] MEDS: HYDROmorphONE 4 MG TAB PO PRN (12:46)
--- NOTE | 2017-07-26 17:34 | DS ---
Date/Time of Note Date/Time of Note DATE: 07/26/17 TIME: 17:33 Discharge Summary Admission/Discharge Info Admit Date/Time Jul 23, 2017 at 23:26 Discharge Date/Time Discharge Diagnosis Multiple sclerosis Patient Condition: Good Hx of Present Illness This is a 55-year-old female with a history of hypertension, seizure, multiple sclerosis, probable dementia and depression who was sent from SNF for altered mentation. Field EKG actually showed STEMI and she was brought to the ER as code STEMI. 2 EKGs done in the ER however showed no ST-T wave abnormalities and as such STEMI was cancelled. Patient is currently confused and as such information is obtained from chart review and from the ER physician. Reportedly patient is usually verbal but about an hour prior to presenting to the ER she was noted to be altered and nonverbal. When she presented to the ER, initial vitals were stable but after couple of hours blood pressure was noted to be as low as 70/44. Labs shows a hemoglobin of 11 otherwise CBC and CMP within acceptable range. Urinalysis consistent with UTI. Brain CT was negative for acute findings. Hospital Course 51 yo female with MS, s/p AKA for osteomyelitis 2/2 pressure ulcer, bed bound who was apparently sent to ED for acute seizure Pateint remained asymptomatic throughotu her stay. She underwent EEG with was normal. MRI revealed chronic changes consistent wiht MS but nothing acute per consulting neurologist Dr Escalante. Her Keppra dose was increased to 750 form 500 BID. She was otherwise continued on her home medications Home Meds Reported Medications Oxcarbazepine* (Oxcarbazepine*) 150 Mg Tablet, 150 MG PO BID, TAB 07/24/17 Metoprolol Tartrate* (Lopressor*) 25 Mg Tablet, 25 MG PO BID, #60 TAB 07/24/17 Memantine* (Namenda*) 5 Mg Tablet, 5 MG PO BID, #60 TAB 07/24/17 Melatonin (MELADOX) 3 Mg Tablet.er, 3 MG PO, TAB 07/24/17 Magnesium Chloride* (Mag 64*) 64 Mg Tabsr, 64 MG PO BID, TAB 07/24/17 Hydromorphone Hcl* (Hydromorphone Hcl*) 4 Mg Tablet, 4 MG PO Q6 Y for PAIN, TAB 07/24/17 Ergocalciferol (Vitamin D2) (VITAMIN D2) 50,000 Unit Capsule, 47651 UNIT PO, CAP TAKE 50,000 units BY MOUTH ONCE A WEEK, Thursdays07/24/17 Donepezil* (Donepezil*) 10 Mg Tablet, 10 MG PO DAILY, #30 TAB 07/24/17 Docusate Sodium* (Docusate Sodium*) 100 Mg Capsule, 100 MG PO BID, #60 CAP 07/24/17 Cranberry Fruit Concentrate (CRANBERRY) 450 Mg Capsule, 450 MG PO, CAP 07/24/17 Clonidine Hcl* (Clonidine Hcl*) 0.1 Mg Tab, 0.1 MG PO Q8, TAB 07/24/17 Bisacodyl (Dulcolax) 10 Mg Supp.rect, 10 MG RC, SUPP.RECT 07/24/17 Baclofen* (Baclofen*) 20 Mg Tablet, 20 MG PO QID, TAB 07/24/17 Levetiracetam* (Levetiracetam*) 500 Mg/5 Ml Solution, 500 MG PO BID, ML TAKE 1.5 TABLETS BY MOUTH2 TIMES DAILY 07/24/17 Acetaminophen* (Acetaminophen*) 325 Mg Tablet, 325 MG PO Q4H Y for PAIN AND OR ELEVATED TEMP, #30 TAB 07/24/17 M-17/Nettle/Pumpk/Saw Palmet (Prostate Therapy Softgel) 1 Each Capsule, 1 EACH PO, CAP 07/24/17 Venlafaxine Hcl* (Effexor XR*) 75 Mg Tab.er.24, 75 MG PO DAILY, TAB.SA 07/24/17 Pantoprazole* (Pantoprazole*) 40 Mg Tablet.dr, 40 MG PO AC BREAKFAST, TAB 07/24/17 Gabapentin* (Gabapentin*) 100 Mg Capsule, 100 MG PO TID, #90 CAP 07/24/17 Amlodipine Besylate* (Amlodipine Besylate*) 10 Mg Tablet, 10 MG PO DAILY, #30 TAB 07/24/17 Primary Care Provider CRISTINE Jackson MD Jul 26, 2017 17:34
--- NOTE | 2017-07-27 08:32 | HKNOTE ---
DATE OF SERVICE: 07/26/2017 HISTORY OF PRESENT ILLNESS: The patient is a [id number] lady with decreased mini-mental status, seizure disorder, in which we increased her medication for seizures from 500 to 750 mg twice a day. The patient with underlying memory disorder, TIA, depression. PHYSICAL EXAMINATION: GENERAL: The patient is alert, awake, oriented. Following simple commands. HEART: Regular rate and rhythm. LUNGS: Equal breath sounds. ABDOMEN: Soft, nondistended, nontender. [employer]: Cranial nerve number II: Pupils equal on both sides. Reactive to light. Cranial nerves III, IV, and : Extraocular muscles intact. No nystagmus. Cranial nerve number V: Equal sensation to face. Cranial nerve number X: Symmetrical face. Cranial nerve number VIII: Decreased hearing bilaterally. Cranial nerves IX and X: Elevates palate. Cranial nerve XI: Elevates shoulder 5/5. Cranial nerve XII: With straight tongue. Motor exam: Right lower extremity with AKA. Moving both upper extremities and left lower extremity against gravity without difficulty. ASSESSMENT AND PLAN: 1. The patient is [id number] with underlying seizures, in which we increased her Keppra from 500 to 750 mg. Keep the patient on seizure precautions and aspiration precaution. 2. Underlying dementia. Keep the patient on Aricept 10 mg as well as Namenda 5 mg. 3. History of depression. Keep the patient on Effexor 75 mg once a day. 4. History of transient ischemic attack. Keep the patient on aspirin 81 mg once a day. Follow up the patient in outpatient clinic. Dictated By: Grover Giles MD /[email or web address]/vicki /Document#: [id number]
== END 2017-07-26 18:08 | DRG 101 ==
LOC: E/R 21:13 → PP2 23:26 → MS4 07-24 21:57
PROVIDERS: ADMIT Internal Medicine; ATTEND Internal Medicine
DX: G40.909 Epilepsy, unspecified, not intractable, without status epilepticus (principal); G30.9 Alzheimer's disease, unspecified; G35 Multiple sclerosis; Z89.619 Acquired absence of unspecified leg above knee; F02.80 Dementia in other diseases classified elsewhere, unspecified severity, without behavioral disturbance, psychotic disturbance, mood disturbance, and anxiety; N39.0 Urinary tract infection, site not specified; I10 Essential (primary) hypertension; Z79.82 Long term (current) use of aspirin; F32.9 Major depressive disorder, single episode, unspecified; Z60.2 Problems related to living alone; Z86.73 Personal history of transient ischemic attack (TIA), and cerebral infarction without residual deficits
CPT/HCPCS: 36415; 70450; 70551; 71010; 80048; 80053; 80061; 80307; 81001; 82607; 82746; 83036; 83735; 84100; 84443; 84484; 85025; 85610; 85730; 87086; 92526; 92610; 93005; 95819; 96372; 96374; 97161; J0696; J1170; J1644; J2060; J2270; J7030; J7042